=== PATIENT | female | born 1955 | race Caucasian/White ===

== ENCOUNTER 2020-12-31 06:28 | Day surgery (SDC) | payer OTHER ==
[~2020-12-31 06:28] MED LIST: AMLO PO; CENTRUM ADULTS1 EACH PO; FORTAMET1000 MG PO; GLIMEPIRIDE2 M1 PO; JANUVIA100 MG PO; ROSUVAST PO; VITAMIN C100 MG PO; VITAMIN E PO
[2020-12-31] MEDS ORDERED: ULTRACET PO (10:12)
[2020-12-31] MEDS ORDERED: MACROBID 100 M100 MG PO (10:12)
== END 2020-12-31 12:55 | disposition home or self-care (01) ==
LOC: CIR.AMB 06:28
PROVIDERS: ATTEND Obstetrics & Gynecology Gynecology
DX: N81.11 Cystocele, midline (principal); Z20.822 Contact with and (suspected) exposure to COVID-19